=== PATIENT | female | born 1940 | race American Indian/Alaskan Native ===

== ENCOUNTER 2018-12-07 06:17 | Outpatient (CLI) | payer MEDICARE ==
--- NOTE | 2018-12-07 09:44 | XRay Report ---
ROUTINE CHEST, TWO VIEWS: HISTORY: Hypertension, sleep apnea. The lungs are mildly hyperinflated. No evidence for infiltrate, pleural effusion or pneumothorax. Normal heart size and pulmonary vascularity. The bony structures are mildly demineralized but intact. Chronic deformity of the proximal right humerus is noted. IMPRESSION: Mild hyperinflation. No acute process identified.
--- NOTE | 2018-12-07 09:47 | Fluoroscopy Report ---
UPPER GI WITH AIR CONTRAST HISTORY: Gastroesophageal reflux. FINDINGS: 25 fluoroscopic images were captured during this exam. Deglutition was normal. No evidence for aspiration. The esophagus is normal caliber and mucosal pattern throughout. There is no evidence for focal narrowing, mucosal defect or hiatal hernia. No reflux was witnessed during this exam. There did appear to be decreased esophageal peristalsis. The gastric cavity is normal contour and mucosal pattern. No evidence for focal lesion or ulceration. Decreased gastric peristalsis was suspected throughout this exam. The duodenum is normal caliber and mucosal pattern throughout. IMPRESSION: No evidence for hiatal hernia or reflux disease during this exam. No mucosal defect or narrowing. Decreased motility was suspected throughout this exam suggesting mild gastroparesis.
== END 2018-12-07 06:18 | disposition home or self-care (01) ==
LOC: FLUORO 06:17
PROVIDERS: ATTEND Internal Medicine
DX: K21.9 Gastro-esophageal reflux disease without esophagitis (principal); R91.8 Other nonspecific abnormal finding of lung field; I11.0 Hypertensive heart disease with heart failure; I50.9 Heart failure, unspecified; E78.00 Pure hypercholesterolemia, unspecified; J45.909 Unspecified asthma, uncomplicated; M19.90 Unspecified osteoarthritis, unspecified site; E11.9 Type 2 diabetes mellitus without complications; Z90.49 Acquired absence of other specified parts of digestive tract; Z90.710 Acquired absence of both cervix and uterus
CPT/HCPCS: 71046; 74247

== ENCOUNTER 2019-01-04 08:28 | Outpatient (CLI) | payer MEDICARE ==
--- NOTE | 2019-01-05 03:16 | Vascular Lab Report ---
PROCEDURE: US BILATERAL LOWER EXTREMITY VENOUS DUPLEX DOPPLER TECHNIQUE: Duplex Doppler ultrasound of the BILATERAL common and superficial femoral, popliteal, pos terior tibial and proximal deep femoral and greater saphenous veins was attempted. Valdez scale imaging with and without compression, spectral waveform analysis with and without augmentation, and color fl ow Doppler were employed. CPT 17240 HISTORY: Pain and swelling. COMPARISONS: None . FINDINGS: RIGHT LOWER EXTREMITY: Deep Venous Thrombus: None . Superficial Venous Thrombus: None . Venous valvular incompetence: There is reflux in the common femoral vein and popliteal vein. . Soft tissue abnormality: None . Other: There is superficial venous reflux in the saphenofemoral junction., greater saphenous vein an d short saphenous vein. . LEFT LOWER EXTREMITY: Deep Venous Thrombus: None . Superficial Venous Thrombus: None . Venous valvular incompetence: There is reflux in the common femoral vein. . Soft tissue abnormality: None . Other: There is superficial venous reflux in the saphenofemoral junction, greater saphenous vein and short saphenous vein. . IMPRESSION: No evidence of deep venous thrombosis . There is bilateral deep and superficial venous r eflux. This document is electronically signed by Mundo Damon MD., January 05 2019 03:13:40 AM ET
== END 2019-01-04 08:29 | disposition home or self-care (01) ==
LOC: VAS 08:28
PROVIDERS: ATTEND Internal Medicine
DX: I87.2 Venous insufficiency (chronic) (peripheral) (principal); I11.0 Hypertensive heart disease with heart failure; I50.9 Heart failure, unspecified; E78.00 Pure hypercholesterolemia, unspecified; J45.909 Unspecified asthma, uncomplicated; K21.9 Gastro-esophageal reflux disease without esophagitis; E66.9 Obesity, unspecified; E11.9 Type 2 diabetes mellitus without complications; M19.90 Unspecified osteoarthritis, unspecified site; Z90.49 Acquired absence of other specified parts of digestive tract; Z90.710 Acquired absence of both cervix and uterus; Z87.891 Personal history of nicotine dependence
CPT/HCPCS: 36600; 82803; 93970